=== PATIENT | male | born 1995 | race Caucasian/White ===

== ENCOUNTER 2017-06-19 23:37 | Emergency (ER) | payer MEDICAID, SELFPAY ==
[~2017-06-19] VITALS: Ht 185.4 cm; Wt 90.4 kg
[~2017-06-19 23:37] MED LIST: SERT100T
[2017-06-19 23:38] VITALS: BP 128/82
[2017-06-19] MEDS ORDERED: LIDOCAINE 1%, 20ML ONE (23:56)
[2017-06-20] MEDS ORDERED: LIDOCAINE 1%, 20ML SQ ONE
[2017-06-20] MEDS ORDERED: BACITRACIN ZINC OINT 500U/GM, 0.9 GM ONE (00:10)
[2017-06-20] MEDS ORDERED: BUPR-86 PO (00:24)
[2017-06-20] MEDS ORDERED: LISD50CA2 PO (00:24)
== END 2017-06-20 00:32 | disposition home or self-care (01) ==
LOC: ED 23:59
DX: S61.412A Laceration without foreign body of left hand, initial encounter (principal); X58.XXXA Exposure to other specified factors, initial encounter; Y93.89 Activity, other specified; Y92.008 Other place in unspecified non-institutional (private) residence as the place of occurrence of the external cause; Y99.8 Other external cause status
CPT/HCPCS: 12002

== ENCOUNTER 2018-12-15 22:45 | Emergency (ER) | payer MEDICAID ==
[~2018-12-15] VITALS: Ht 188 cm; Wt 90.9 kg
[~2018-12-15 22:45] MED LIST changes: +BUPR-86 PO; +LISD50CA3 PO
[2018-12-15 22:47] VITALS: BP 126/78
[2018-12-15] MEDS ORDERED: ALBUTEROL SULFATE 2.5 MG/3 ML NPPB ONE (23:00)
[2018-12-15] MEDS ORDERED: ALBUTEROL/IPRATROPIUM 2.5MG/0.5MG, 3 ML ONE (23:05)
== END 2018-12-15 23:52 | disposition home or self-care (01) ==
LOC: ED 23:15
DX: J20.8 Acute bronchitis due to other specified organisms (principal); Z90.49 Acquired absence of other specified parts of digestive tract; F90.9 Attention-deficit hyperactivity disorder, unspecified type; J45.909 Unspecified asthma, uncomplicated; F32.9 Major depressive disorder, single episode, unspecified
CPT/HCPCS: 71046; 94640; 99283; J7512

== ENCOUNTER 2021-01-29 03:51 | Emergency (ER) | payer SELFPAY ==
[~2021-01-29] VITALS: Ht 188 cm; Wt 103.6 kg
[2021-01-29] MEDS ORDERED: AMPH30CA6 PO (04:03)
[2021-01-29] MEDS ORDERED: FLUO40CA9 PO (04:03)
--- NOTE | 2021-01-29 04:06 | NUR ---
patient presents to ED after injecting heroin around 0220 this morning. patient found to be 70% on RA, diaphoretic, unresponsive, greyish-pale but breathing on own. narcan given by EMS with effect. call flores in reach. safety maintained. urinal placed at bedside
--- NOTE | 2021-01-29 04:58 | NUR ---
patient asking how long he will be monitored for. patient currently requiring O2. i will continue to attempt to wean him off supplemental o2. if he requires O2, then Dr. Bangura verbally instructed RN to administer 0.4mg IV narcan. OUMAR
[2021-01-29] MEDS ORDERED: NALOXONE 0.4 MG/ML, 1ML IVPush ONE (05:00)
--- NOTE | 2021-01-29 05:05 | NUR ---
PATIENT TITRATED DOWN TO RA. WILL CONTINUE TO MONITOR.
--- NOTE | 2021-01-29 05:10 | NUR ---
PATIENT FOUND STANDING UP AT SIDE OF BED. PATIENT STATED "I CANT PEE WHILE IM IN BED, I HAD TO STAND UP". RN WAITING OUTSIDE ROOM. PATIENT SEEMED TO SWAY DURING STANDING AT BEDSIDE AND O2 SAT DOWN TO 87%. I GOT PATIENT BACK ONTO [facility] AND NOTIFIED HIM WHY. ADDITIONAL NARCAN DOSE GIVEN. WILL CONTINUE TO MONITOR Addendum: 01/29/21 at 0541 by PEGGY patient placed back on via NC
[2021-01-29] MEDS ORDERED: NALOXONE 0.4 MG/ML, 1ML ONE (05:15)
--- NOTE | 2021-01-29 05:54 | NUR ---
patient more alert and awake after 2nd dose of narcan. patient titrated down to RA. will continue to monitor.
--- NOTE | 2021-01-29 06:48 | NUR ---
I have had to wean patient down in O2 via NC and titrate up due to hypoxia. patient not tolerating at this time. currently on 2L via NC. bedside report given to Tyesha YUN. call flores in reach
--- NOTE | 2021-01-29 06:51 | NUR ---
Recieved report from Luly YUN. Pt requested water.
--- NOTE | 2021-01-29 07:23 | NUR ---
AMBULATED PT, O2 SAT RANGED 85-92%. MD NOTIFIED.
[2021-01-29] MEDS ORDERED: NICOTINE 21 MG/24 HR PATCH.TD24 ONE (08:03)
--- NOTE | 2021-01-29 08:16 | NUR ---
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 PT EDUCATED THAT HIS O2 IS STILL LOW AND THAT THE MD IS CONSIDERING ADMITTING HIM TO THE HOSPITAL. PT AGREES TO STAY AND AMBULATE IN 20 MIN TO SEE IF HE CAN MAINTAIN HIS SPO2 AND GO HOME. PT GIVEN WATER, DIET TRAY ORDERED AND 21 MG NICOTINE PATCH GIVEN. DIET TRAY GIVEN.
[2021-01-29] MEDS ORDERED: NICOTINE 21 MG/24 HR PATCH.TD24 TD ONE (08:30)
--- NOTE | 2021-01-29 08:39 | NUR ---
ROAD TEST DONE, PT O2 SAT 94%.
[2021-01-29 08:46] VITALS: BP 127/54
--- NOTE | 2021-01-29 08:46 | NUR ---
LAW AGREES TO DC
== END 2021-01-29 08:49 | disposition home or self-care (01) ==
LOC: ED 06:30
DX: T40.1X1A Poisoning by heroin, accidental (unintentional), initial encounter (principal); Y92.9 Unspecified place or not applicable
CPT/HCPCS: 96374; 99285; J2310